=== PATIENT | female | born 1955 | race Caucasian/White ===

== ENCOUNTER → 2017-08-29 | Outpatient (REF) ==
--- NOTE | 2017-08-29 15:10 | REP ---
Left hand series: Four views. History: Degenerative disc disease. Findings: Four views of the left hand demonstrate overall normal mineralization. There is moderate osteoarthritis at the first carpometacarpal articulation with narrowing, sclerosis and spurring. Osteoarthritis is seen at the IP joint of the thumb and there are osteoarthritic changes at the DIP joints of the index and small finger. Some PIP joint osteoarthritic spurring is seen at the index and long finger. No erosive changes seen. Impression: Osteoarthritic changes. Signed by Mihai Byrd MD 08/29/2017 03:19 P
== END ==
LOC: M SMT 14:12
PROVIDERS: ATTEND Internal Medicine
DX: M19.042 Primary osteoarthritis, left hand (principal)